=== PATIENT | female | born 1965 | race African-American/Black ===

== ENCOUNTER → 2018-07-26 | Outpatient (CLI) | payer MEDICAID, OTHER ==
[~2018-07-26] MED LIST: REGADENOSON 0.4 MG/5 ML SYG ONE
--- NOTE | 2018-07-26 16:21 | RADRPT ---
Echocardiogram Report Patient Name: FRANCISCO COOKPatient ID: [id number] : 10 (52y 8m)Study Date: 07/26/2018 10:07:29 AM Gender: FAccession #: [id number] Tech: Chanucey Hilliard [facility] Location: EKG Ref.Physician: VANIA ROMERO Height(Cm): BSA: Weight(Kg): Quality: AdequateOrder Physician: VANIA ROMERO Account #: Procedures: Echocardiographic Report: Transthoracic echocardiogram with complete 2D, M-Mode, and doppler examination. Indications: Coronary Artery Disease, and Hypertension. Measurements: 2D/M Mode Doppler Measurement Value Normal Range Measurement Value Normal Range LVIDd 2D 4.5 [ 3.8 - 5.2 ] cm AV Peak Alfonzo 1.4 [ 100.0 - 170.0 ] cm/sec LVIDs 2D 3.2 [ 2.2 - 3.5 ] cm AV Peak PG 8.0 [ 2.0 - 9.0 ] mmHg LVPWd 2D 1.2 [ 0.6 - 0.9 ] cm LVOT Peak Alfonzo 1.1 [ 70.0 - 110.0 ] cm/sec IVSd 2D 1.2 [ 0.6 - 0.9 ] cm LVOT Peak PG 5.0 [ 2.0 - 6.0 ] mmHg IVS/LVPW 2D 1.0 ratio MV E Peak Alfonzo 0.7 [ 60.0 - 130.0 ] cm/sec AoR Diam 2D 2.6 [ 2.3 - 3.1 ] cm MV A Peak Alfonzo 0.9 [ 100.0 - 120.0 ] cm/sec LA/Ao 2D 2 ratio MV E/A 0.7 [ 0.8 - 1.5 ] ratio LA Dimen 2D 4.1 [ 2.7 - 3.8 ] cm MV Decel Time 180 [ 104 - 258 ] msec Lat E` Alfonzo 0.1 [ 10.0 - 15.0 ] cm/sec MV E/A 0.7 [ 0.8 - 1.5 ] ratio TR Peak Alfonzo 2.0 [ 100.0 - 280.0 ] cm/sec TR Peak PG 15.0 mmHg RVSP 18.0 [ 10.0 - 36.0 ] mmHg Findings: Left Ventricle: Normal left ventricular cavity size. Moderate asymmetric septal hypertrophy. Moderate global left ventricular systolic dysfunction. Ejection fraction is visually estimated at 30-35 %. Unable to rule out left ventricular thrombus - secondary to shadowing, heavy trebeculation. Tissue Doppler/Mitral Doppler indices are consistent with impaired relaxation (Stage I diastolic dysfunction). These segments of the LV are akinetic apical cap. Right Ventricle: Normal right ventricular size. Normal right ventricular systolic function. Left Atrium: There is mild enlargement of left atrium. Right Atrium: The right atrium is normal in size. Mitral Valve: Mild mitral leaflet calcification. Mild mitral annular calcification. Trace mitral regurgitation. Aortic Valve: No hemodynamically significant aortic stenosis by doppler. Aortic cusps appear mildly calcified. Tricuspid Valve: Normal appearance of the tricuspid valve. The estimated Peak RVSP is 18 mmHg. There is trace tricuspid regurgitation. Pericardium: Normal pericardium with no significant pericardial effusion. Aorta: Normal aortic root. IVC: Normal size and normal respiratory collapse consistent with normal right atrial pressure. Conclusions: Normal left ventricular cavity size. Moderate asymmetric septal hypertrophy. Moderate global left ventricular systolic dysfunction. Ejection fraction is visually estimated at 30-35 %. Unable to rule out left ventricular thrombus - secondary to shadowing, heavy trebeculationin in apex. Tissue Doppler/Mitral Doppler indices are consistent with impaired relaxation (Stage I diastolic dysfunction). These segments of the LV are akinetic apical cap. There is mild enlargement of left atrium. Mild mitral leaflet calcification. Mild mitral annular calcification. Trace mitral regurgitation. Normal appearance of the tricuspid valve. The estimated Peak RVSP is 18 mmHg. There is trace tricuspid regurgitation. Electronically Signed By: Vania Romero 2018-07-26 16:21:19 PDT
--- NOTE | 2018-07-26 19:43 | CARRPT ---
DATE OF PROCEDURE: 07/26/2018 TYPE OF PROCEDURE: Lexiscan Cardiolite stress test, electrocardiogram portion. INDICATION: Chest pain. REQUESTING PHYSICIAN: Dr. Ruano. BASELINE VITAL SIGNS AND ELECTROCARDIOGRAM: Pulse 69, blood pressure 130/84. Electrocardiogram was normal sinus rhythm, rate of 69 with a borderline right axis deviation, inferior and lateral T-wave i nversions. PROCEDURE: The patient underwent standard Lexiscan infusion protocol for 10 seconds followed by radi olabeled tracer. The patient's test was stopped at completion of protocol. Maximal achieved blood p ressure during the test was 150/74. Maximum heart rate during the test was 102. ELECTROCARDIOGRAM FINDINGS: The patient did not develop any new Lexiscan-induced ST or T-wave change s from baseline abnormalities. The patient had occasional PVCs. SYMPTOMS: The patient had mild shortness breath during stress testing, no chest pain. IMPRESSION: 1. No Lexiscan-induced ST or T-wave changes from baseline abnormalities diagnostic for ischemia. 2. Complaints of shortness of breath during stress test that resolved in recovery. 3. No chest pain during stress test. 4. Occasional premature ventricular contractions during stress testing. 5. Report of nuclear images to follow in separate dictation. Dictated By: VANIA DOUGHERTY/SATISH Conf#: [id number] DID#: [id number] CC: HEYDI RUANO MD;*EndCC*
== END | disposition home or self-care (01) ==
LOC: EKG 09:27
PROVIDERS: ATTEND Internal Medicine
DX: I25.10 Atherosclerotic heart disease of native coronary artery without angina pectoris (principal); I10 Essential (primary) hypertension
CPT/HCPCS: 78452; 93017; 93306; A9500; A9505; J2785